=== PATIENT | female | born 1960 | race Caucasian/White ===

== ENCOUNTER 2016-04-20 09:22 | Outpatient (CLI) | payer BC ==
[~2016-04-20 09:22] MED LIST: MECL25TA3 PO
== END 2016-04-20 23:59 | disposition home or self-care (01) ==
LOC: US 09:22
DX: D25.9 Leiomyoma of uterus, unspecified (principal); M47.897 Other spondylosis, lumbosacral region
CPT/HCPCS: 72100-TC; 76856-TC

== ENCOUNTER 2016-06-15 10:54 | Outpatient (CLI) | payer BC | END 2016-06-15 23:59 | disposition home or self-care (01) | LOC: US 10:54 | DX: N83.292 Other ovarian cyst, left side (principal) | CPT/HCPCS: 76856-TC ==

== ENCOUNTER → 2017-05-22 | Outpatient (CLI) | payer BC ==
[~2017-05-22] MED LIST changes: +METOPROLOL TARTRATE INJ 5 MG/5 ML AMPUL ONE
[2017-05-22 11:20] LABS: ALBUMIN 4.1 g/dL (3.4-5.0); BILIRUBIN,TOTAL 0.7 mg/dL (0.2-1.0); CALCIUM, SERUM 8.9 mg/dL (8.5-10.1); CREATININE 0.6 mg/dL (0.6-1.3); POTASSIUM 3.5 mmol/L (3.5-5.1); TOTAL PROTEIN, SERUM 7.9 g/dL (6.4-8.2)
[2017-05-22 11:33] LABS: T4 (THYROXINE) 11.4 ug/dL (4.7-13.3); THYROID STIMULATING HORMONE 1.505 uIU/mL (0.358-3.74)
[2017-05-22 11:45] LABS: BASOPHILS % (AUTO) 0.9 % (0.0-2.0); EOSINOPHILS # (AUTO) 0.2 /CMM (0.0-0.7); EOSINOPHILS % (AUTO) 3.5 % (0.0-6.0); HEMATOCRIT 42 % (33-45); HEMOGLOBIN 14.6 g/dL (11.5-14.8); LYMPHOCYTES # (AUTO) 2.2 /CMM (0.8-4.8); LYMPHOCYTES % (AUTO) 39.3 % (20.0-44.0); MEAN CORPUSCULAR HEMOGLOBIN 31 PG (26.0-33.0); MEAN CORPUSCULAR HGB CONC 35 g/dl (31.0-36.0); MEAN CORPUSCULAR VOLUME 88 fL (82-100); MONOCYTES # (AUTO) 0.3 /CMM (0.1-1.30); MONOCYTES % (AUTO) 6.2 % (2.0-12.0); NEUTROPHILS # (AUTO) 2.8 /CMM (1.8-8.9); NEUTROPHILS % (AUTO) 50.1 % (43.0-81.0); PLATELET COUNT (AUTO) 331 /CMM (150-450); RDW COEFFICIENT OF VARIATION 13.6 (11.5-15.0); RED BLOOD CELL COUNT(AUTO) 4.78 MIL/uL (4.0-5.2); RETICULOCYTE COUNT 1.7 % (0.6-2.5); WHITE BLOOD COUNT (AUTO) 5.5 K/uL (4.3-11.0)
[2017-05-22 12:33] LABS: APPEARANCE,URINE SL CLOUDY (CLEAR); BILIRUBIN,URINE NEGATIVE (NEGATIVE); BLOOD, URINE NEGATIVE Ery/uL (NEGATIVE); COLOR,URINE YELLOW (YELLOW); KETONES,URINE NEGATIVE (NEGATIVE); LEUKOCYTE ESTERASE ,URINE NEGATIVE (NEGATIVE); NITRITE, URINE NEGATIVE (NEGATIVE); PROTEIN,URINE NEGATIVE (NEGATIVE); UGLUCOSE NEGATIVE (NEGATIVE); UROBILINOGEN,URINE 0.2 EU/dL (0.2)
== END | disposition home or self-care (01) ==
LOC: LAB 09:45
DX: I10 Essential (primary) hypertension (principal); R79.89 Other specified abnormal findings of blood chemistry
CPT/HCPCS: 80053; 80061; 81001; 82607; 82728; 83036; 83540; 84436; 84439; 84443; 84480; 85025; 85045; J3490; 36415; 81000-TC; 82306; 87086-TC

== ENCOUNTER 2017-06-26 11:12 | Outpatient (CLI) | payer BC ==
[~2017-06-26 11:12] MED LIST changes: -METOPROLOL TARTRATE INJ 5 MG/5 ML AMPUL ONE
== END 2017-06-26 23:59 | disposition home or self-care (01) ==
LOC: RAD 11:12
PROVIDERS: ATTEND Psychiatry & Neurology Psychiatry
DX: M25.551 Pain in right hip (principal)
CPT/HCPCS: 73502

== ENCOUNTER 2017-06-30 08:56 | Outpatient (CLI) | payer BC | END 2017-06-30 23:59 | disposition home or self-care (01) | LOC: US 08:56 | PROVIDERS: ATTEND Psychiatry & Neurology Psychiatry | DX: N88.8 Other specified noninflammatory disorders of cervix uteri (principal); Z90.49 Acquired absence of other specified parts of digestive tract | CPT/HCPCS: 76700-TC; 76856-TC ==

== ENCOUNTER 2018-04-25 10:10 | Emergency (ER) | payer BC ==
[~2018-04-25] VITALS: Ht 154.9 cm; Wt 81.2 kg
--- NOTE | 2018-04-25 10:12 | NUR ---
AAOX3, CAME TO ER C/O ON/OFF DIZZINESS X 1 MONTH, HX OF VERTIGO. RR IS EVEN AND UNLABORED WITH NAD NOTED. SKIN IS WARM AND DRY. AWAITING MD FOR EVAL.
[2018-04-25] MEDS ORDERED: MECLIZINE HCL 12.5 MG TABLET PO ONE (10:30)
[2018-04-25] MEDS ORDERED: IV NS 0.9% 1,000 ML BAG IV ONE (10:30)
[2018-04-25] MEDS ORDERED: ONDANSETRON HCL/PF 4 MG/2 ML VIAL IVP ONE (10:30)
[2018-04-25] MEDS ORDERED: ONDANSETRON HCL/PF 4 MG/2 ML VIAL ONE (10:35)
[2018-04-25] MEDS ORDERED: MECLIZINE HCL 25 MG TABLET ONE (10:35)
[2018-04-25 10:40] LABS: BASOPHILS # (AUTO) 0.1 /CMM (0.0-0.2); BASOPHILS % (AUTO) 1.1 % (0.0-2.0); EOSINOPHILS % (AUTO) 0.7 % (0.0-6.0); HEMATOCRIT 45 % (33-45); HEMOGLOBIN 15.4 g/dL (11.5-14.8); LYMPHOCYTES # (AUTO) 2.1 /CMM (0.8-4.8); LYMPHOCYTES % (AUTO) 26.1 % (20.0-44.0); MEAN CORPUSCULAR HGB CONC 35 g/dl (31.0-36.0); MEAN CORPUSCULAR VOLUME 87 fL (82-100); MONOCYTES # (AUTO) 0.4 /CMM (0.1-1.30); MONOCYTES % (AUTO) 5.5 % (2.0-12.0); NEUTROPHILS # (AUTO) 5.3 /CMM (1.8-8.9); NEUTROPHILS % (AUTO) 66.6 % (43.0-81.0); PLATELET COUNT (AUTO) 409 /CMM (150-450); RED BLOOD CELL COUNT(AUTO) 5.13 MIL/uL (4.0-5.2)
[2018-04-25 10:48] LABS: CALCIUM, SERUM 9.5 mg/dL (8.5-10.1); CARBON DIOXIDE 30 mmol/L (21-32); CHLORIDE 102 mmol/L (98-107); CREATININE 0.7 mg/dL (0.6-1.3); GLUCOSE 127 mg/dL (74-106); SODIUM SERUM 137 mmol/L (136-145); UREA NITROGEN, BLOOD 9 mg/dL (7-18)
[2018-04-25 10:54] LABS: ALANINE AMINOTRANSFERASE 38 U/L (12-78); ALBUMIN 4.2 g/dL (3.4-5.0); ALKALINE PHOSPHATASE 110 U/L (46-116); ASPARTATE AMINOTRANSFERASE 21 U/L (15-37); BILIRUBIN,DIRECT 0.1 mg/dL (0.0-0.2); BILIRUBIN,TOTAL 0.5 mg/dL (0.2-1.0); TOTAL PROTEIN, SERUM 8.1 g/dL (6.4-8.2)
[2018-04-25 12:17] VITALS: BP 135/70
--- NOTE | 2018-04-25 12:21 | NUR ---
Patient discharged to home in stable condition. Written and verbal after care instructions given. Patient verbalizes understanding of instruction.IV removed. Catheter intact and site benign. Pressure and 4x4 applied to site. No bleeding noted.
== END 2018-04-25 12:18 | disposition home or self-care (01) ==
LOC: ER 10:12
DX: R42 Dizziness and giddiness (principal); F41.9 Anxiety disorder, unspecified; Z98.890 Other specified postprocedural states
CPT/HCPCS: 36415; 70450; 71045; 80048; 80076; 84484; 85025; 85730; 93005; 96361; 96374; 99284; A4606; J2405; J7030; J8597; Z7610

== ENCOUNTER 2021-06-11 09:48 | Outpatient (CLI) | payer OTHER | END 2021-06-11 23:59 | disposition home or self-care (01) | LOC: LAB 09:48 | PROVIDERS: ATTEND Specialist | DX: Z01.812 Encounter for preprocedural laboratory examination (principal); Z20.822 Contact with and (suspected) exposure to COVID-19 | CPT/HCPCS: C9803; U0003 ==

== ENCOUNTER 2021-06-17 05:16 | Day surgery (SDC) | payer OTHER ==
[~2021-06-17] VITALS: Ht 157.5 cm; Wt 78.0 kg
[2021-06-17] MEDS ORDERED: BUPIVACAINE 0.5 % PF 150 MG/30 ML VIAL ONE (06:10)
[2021-06-17] MEDS ORDERED: ANESTHESIA TRAY IN PYXIS 1 EA TRAY MC ONE (06:10)
[2021-06-17] MEDS ORDERED: BUPIVACAINE 0.25% 75 MG/30 ML VIAL ONE (06:11)
--- NOTE | 2021-06-17 06:15 | NUR ---
RN ADMITTING/CLOSING NOTE PATIENT HERE FOR LEFT CARPAL TUNNEL RELEASE. PATIENT PICKED UP BY DISTANCE LEARNING UNIT LEADER CARLOS TO OR AT THIS TIME. ALL BELONGINGS REMAINED AT BEDSIDE. ALL CONSENTS ARE SIGNED. MRSA COLLECTED. PATIENT IS A/O X4 ABLE TO MAKE NEEDS KNOWN. ICELANDIC/UZBEK SPEAKING. PATIENT IS AMBULATORY AND CONTINENT. SKIN IS INTACT. UNABLE TO START IV, OR NURSE WILL START IV ACCESS. ALL NEEDS MET AT THIS TIME. WILL ENDORSE TO DAY SHIFT NURSE FOR CHARLIE.
[2021-06-17] MEDS ORDERED: FENTANYL PF 250MCG/5ML AMPUL ONE (06:33)
[2021-06-17] MEDS ORDERED: MIDAZOLAM HCL 2 MG/2ML VIAL ONE (06:33)
[2021-06-17] MEDS ORDERED: FAMOTIDINE/PF INJ 20 MG/2 ML VIAL IV ONE (06:33)
--- NOTE | 2021-06-17 07:30 | NUR ---
Patient not in the unit during initial rounds
[2021-06-17 08:00] VITALS: BP 110/73
--- NOTE | 2021-06-17 08:30 | NUR ---
Patient came back from surgery around 0822am, stable condition, no apparent distress noted, denies any pain or discomfort at this time, no shortness of breath, afebrile, no respiratory distress. Patient came back with new orders noted and carried out by PACU nurse. Call light left within reach, will monitor closely for any changes.
--- NOTE | 2021-06-17 12:22 | NUR ---
Patient has an order from Dr. Willingham to discharge today, patient made aware of the situation and stated that she wants to go home today, hospitalist made aware of the situation and acknowledged. No apparent distress noted, no shortness of breath, respirations even and unlabored, denies any pain or discomfort, no dizziness, no palpitations, no numbness, no change in level of consciousness, no tremors, no s/s of hypo/hyperglycemia, no abdominal pain or discomfort, no nausea, no vomiting, patient able to urinate and was able to dress herself up with minimal assistance. Patient signed all discharge paper works, all belongings taken, inventory list signed by patient. Health teaching provided, verbalized understanding and gratitude. Reminded patient to schedule a follow up appointment with Dr. Willingham in 10days, office information given to patient, verbalized understanding and gratitude. Skin assessment done prior to discharge, skin intact, warm to touch, no pallor or cyanosis noted. Patient has brown elastic bandage wrapped on her left hand, no s/s of circulation impairment noted at this time, skin warm to touch, no pallor or cyanosis noted, pulse present during shift, no swelling noted at this time, reminded patient to keep dressings clean, dry and intact, dressings to be changed only by MD, and to observe for s/s of infection, unusual odor, unusual discharge, redness, fluid or blood, increased swelling. Educated patient that after procedure, soreness, swelling and pain that can be relieved by taking pain medicine is to be expected. Health teaching provided regarding incision care, bathing, activity, managing pain, stiffness and swelling, patient verbalized understanding and gratitude. Peripheral IV line removed prior to discharge, complete and intact, no excessive bleeding noted, site covered with dry dressing. Name wristband removed prior to discharge, surgical mask provided for patient to use. RN assisted patient going to the hospital parking lot via wheelchair, left unit at 1221pm stable condition, exit care documents handed to patient.
== END 2021-06-17 18:00 | disposition home or self-care (01) ==
LOC: DS 05:16 → MED 05:19 → UNDOADMIN 05:19 → UNDODISIN 12:30 → DS 18:00
PROVIDERS: ATTEND Specialist
DX: G56.02 Carpal tunnel syndrome, left upper limb (principal); E11.9 Type 2 diabetes mellitus without complications; I10 Essential (primary) hypertension; Z98.890 Other specified postprocedural states; Z79.899 Other long term (current) drug therapy
CPT/HCPCS: 25115; 64721; 87081; A4565; A6402; J2250; J3010; J3490 ×3; G0378; J0690; J2405; J2704; J2765; J7030